=== PATIENT | female | born 1970 | race Caucasian/White ===

== ENCOUNTER 2021-05-28 08:14 | Outpatient (REF) | payer OTHER, SELFPAY ==
[2021-05-28 08:52] LABS: COVID-19 Test Positive (Negative)
== END 2021-05-28 08:15 | disposition home or self-care (01) ==
LOC: HO.LAB 08:14
PROVIDERS: PCP Internal Medicine; Visit Provider Internal Medicine
DX: Z20.822 Contact with and (suspected) exposure to COVID-19 (principal)
CPT/HCPCS: 36415; 87635; C9803

== ENCOUNTER 2025-05-10 10:36 | Outpatient (AMB) | payer OTHER, SELFPAY | END 2025-05-10 11:08 | disposition home or self-care (01) | LOC: HO.HMGAL 10:36 | PROVIDERS: PCP Physician Assistant; Visit Provider Registered Nurse Emergency | DX: J30.89 Other allergic rhinitis (principal) | CPT/HCPCS: 95117; 95165 ==

== ENCOUNTER 2025-06-28 11:08 | Outpatient (AMB) | payer OTHER, SELFPAY | END 2025-06-28 11:09 | disposition home or self-care (01) | LOC: HO.HMGAL 11:08 | PROVIDERS: PCP Physician Assistant; Visit Provider Registered Nurse Emergency | DX: J30.89 Other allergic rhinitis (principal) | CPT/HCPCS: 95117; 95165 ==